=== PATIENT | female | born 1975 | race Caucasian/White ===

== ENCOUNTER 2022-08-20 18:27 | Inpatient (IN) | payer OTHER ==
[~2022-08-20] VITALS: Ht 157.5 cm; Wt 96.6 kg
--- NOTE | 2022-08-20 18:34 | ED Cough/URI ---
General Stated Complaint: LOW O2 History of Present Illness Date Seen by Provider: Aug 20, 2022 Time Seen by Provider: 18:31 Initial Comments 46-year-old female presents with concerns for having hard time catching her breath and possible O2. Patient was seen earlier today and diagnosed with influenza A. She reports that symptoms started 2 to 3 days ago. Patient reports she has a home oxygen monitor and it seemed like it was reading low. She does have a smoking history she. She reports that today started on Augmentin and gave her an albuterol inhaler. She denies any nausea vomiting or diarrhea. Allergies and Home Medications Allergies Coded Allergies: No Known Drug Allergies (Unverified , 08/20/22) Patient Home Medication List Home Medication List Reviewed: Yes Aspirin (Aspirin) 81 Mg Tab.chew, 81 MG PO DAILY Prescribed by: SHARON NIX on 08/21/22405 Last Action: New Order Atorvastatin Calcium (Atorvastatin Calcium) 40 Mg Tablet, 40 MG PO DAILY Prescribed by: SHARON NIX on 08/21/22405 Last Action: New Order Bisoprolol Fumarate (Bisoprolol Fumarate) 5 Mg Tablet, 5 MG PO HS, (Reported) Entered as Reported by: Yulisa Boss on 08/21/2251 Last Action: New Order Clopidogrel Bisulfate (Plavix) 75 Mg Tablet, 75 MG PO DAILY Prescribed by: SHARON NIX on 08/21/22405 Last Action: New Order Venlafaxine HCl (Effexor Xr) 37.5 Mg Cap.er.24h, 37.5 MG PO DAILY Prescribed by: SHARON NIX on 08/21/22405 Last Action: New Order Review of Systems Review of Systems Constitutional: chills; No fever; malaise EENTM: no symptoms reported Respiratory: cough, short of breath Cardiovascular: No chest pain Gastrointestinal: No abdominal pain, No diarrhea, No nausea, No vomiting Genitourinary: no symptoms reported Musculoskeletal: no symptoms reported Skin: no symptoms reported Psychiatric/Neurological: No Symptoms Reported Physical Exam Vital Signs - First Documented 08/20/22 18:37 Temp 37.9 Pulse 107 Resp 20 B/P (MAP) 137/91 (106) Pulse Ox 98 O2 Delivery Room Air Capillary Refill : Height: '" Weight: lbs. oz. kg; BMI Method: General Appearance: WD/WN Eyes: Bilateral Eye PERRL Neck: non-tender, full range of motion Respiratory: no respiratory distress, no accessory muscle use Cardiovascular: tachycardia Gastrointestinal: non tender, soft Neurologic/Psychiatric: alert, normal mood/affect, oriented x 3 Skin: normal color, warm/dry Progress/Results/Core Measures Suspected Sepsis SIRS Temperature: Pulse: Respiratory Rate: Laboratory Tests 08/20/22 18:37: White Blood Count 7.9 Blood Pressure / Mean: Laboratory Tests 08/20/22 18:37: Creatinine 0.80, Platelet Count 157, Total Bilirubin 0.4 Results/Orders Lab Results Laboratory Tests Test 08/20/22 18:37 Range/Units White Blood Count 7.9 4.3-11.0 10^3/uL Red Blood Count 4.30 3.80-5.11 10^6/uL Hemoglobin 14.2 11.5-16.0 g/dL Hematocrit 41 35-52 % Mean Corpuscular Volume 95 80-99 fL Mean Corpuscular Hemoglobin 33 25-34 pg Mean Corpuscular Hemoglobin Concent 35 32-36 g/dL Red Cell Distribution Width 13.9 10.0-14.5 % Platelet Count 157 130-400 10^3/uL Mean Platelet Volume 9.6 9.0-12.2 fL Immature Granulocyte % (Auto) 0 % Neutrophils (%) (Auto) 88 H 42-75 % Lymphocytes (%) (Auto) 5 L 12-44 % Monocytes (%) (Auto) 6 0-12 % Eosinophils (%) (Auto) 0 0-10 % Basophils (%) (Auto) 0 0-10 % Neutrophils # (Auto) 6.9 1.8-7.8 10^3/uL Lymphocytes # (Auto) 0.4 L 1.0-4.0 10^3/uL Monocytes # (Auto) 0.5 0.0-1.0 10^3/uL Eosinophils # (Auto) 0.0 0.0-0.3 10^3/uL Basophils # (Auto) 0.0 0.0-0.1 10^3/uL Immature Granulocyte # (Auto) 0.0 0.0-0.1 10^3/uL Neutrophils % (Manual) 77 % Lymphocytes % (Manual) 6 % Monocytes % (Manual) 1 % Eosinophils % (Manual) 0 % Basophils % (Manual) 0 % Band Neutrophils 16 % Sodium Level 132 L 135-145 MMOL/L Potassium Level 3.7 3.6-5.0 MMOL/L Chloride Level 94 L 98-107 MMOL/L Carbon Dioxide Level 21 21-32 MMOL/L Anion Gap 17 H 5-14 MMOL/L Blood Urea Nitrogen 10 7-18 MG/DL Creatinine 0.80 0.60-1.30 MG/DL Estimat Glomerular Filtration Rate 91 BUN/Creatinine Ratio 13 Glucose Level 190 H 70-105 MG/DL Calcium Level 8.3 L 8.5-10.1 MG/DL Corrected Calcium 8.5 8.5-10.1 MG/DL Total Bilirubin 0.4 0.1-1.0 MG/DL Aspartate Amino Transf (AST/SGOT) 23 5-34 U/L Alanine Aminotransferase (ALT/SGPT) 17 0-55 U/L Alkaline Phosphatase 60 40-136 U/L Total Protein 7.1 6.4-8.2 GM/DL Albumin 3.7 3.2-4.5 GM/DL My Orders Orders - SUERO,FREDDY L DO Cbc With Automated Diff (08/20/22 18:35) Comprehensive Metabolic Panel (08/20/22 18:35) Chest Pa/Lat (2 View) (08/20/22 18:35) Ns Iv 1000 Ml (Sodium Chloride 0.9%) (08/20/22 18:35) Ipratropium 0.02% Neb Solution (Atrovent (08/20/22 18:45) Svn Small Volume Nebulizer (08/20/22 18:35) Manual Differential (08/20/22 18:37) Dexamethasone Injection (Decadron Inje (08/20/22 19:15) Albuterol Pre-Mix Nebs (Rt) (Proventil (08/20/22 19:41) Svn Small Volume Nebulizer (08/20/22 19:41) Ct Angio Chest W (08/20/22 20:27) Iohexol Injection (Omnipaque 350 Mg/Ml 1 (08/20/22 20:30) Received Contrast (Hold Metformin- Contr (08/20/22 20:30) Ns (Ivpb) (Sodium Chloride 0.9% Ivpb Bag (08/20/22 20:30) Ed Admission (Communication) (08/20/22 20:44) Medications Given in ED Current Medications Medications Dose Ordered Sig/Yael Route Start Time Stop Time Status Last Admin Dose Admin Dexamethasone Sodium Phosphate 10 mg ONCE ONCE IV 08/20/22 19:15 08/20/22 19:16 DC 08/20/22 19:17 10 MG Iohexol 100 ml ONCE ONCE IV 08/20/22 20:30 08/20/22 20:31 DC 08/20/22 20:38 100 ML Ipratropium [place] 0.5 mg ONCE ONCE IH 08/20/22 18:45 08/20/22 18:46 DC 08/20/22 18:51 0.5 MG Sodium Chloride 100 ml ONCE ONCE IV 08/20/22 20:30 08/20/22 20:31 DC 08/20/22 20:38 100 ML Vital Signs/I&O 08/20/22 18:37 Temp 37.9 Pulse 107 Resp 20 B/P (MAP) 137/91 (106) Pulse Ox 98 O2 Delivery Room Air Capillary Refill : Progress Note : Progress Note Patient's oxygen at rest was in the low to mid 90s. She did have some mild improvement following DuoNeb. However with any activity her oxygen dropped into the mid 80s to upper 80s. After walking to the restroom and back she had an extended recovery time which required oxygen. Patient was placed on oxygen couple liters and maintained in the mid 90s. CTA was obtained that showed no acute findings. Patient to be admitted to [facility] observation due to influenza A and hypoxia. Patient was graciously accepted by Dr. Nix Diagnostic Imaging Diagonstic Imaging: CT Plain Films/CT/US/NM/MRI: chest Comments Date of Exam:08/20/22 CT ANGIO CHEST W PROCEDURE: CT angiography of the chest with contrast. TECHNIQUE: Multiple contiguous axial images were obtained through the chest after uneventful bolus administration of intravenous contrast. 3D reconstructed CTA MIP acquisitions were also performed. Auto Exposure Controls were utilized during the CT exam to meet ALARA standards for radiation dose reduction. INDICATION: Shortness of breath. Chest pain. COMPARISON: Chest radiograph performed earlier the same date. FINDINGS: This helical CT pulmonary angiogram is diagnostic to the subsegmental level branches of the pulmonary artery and demonstrates no pulmonary emboli. The heart and great vessels are unremarkable. There is no pericardial effusion. There is no axillary, mediastinal, or hilar adenopathy. Scattered partially calcified granulomas are seen in the lungs. Subsegmental atelectasis is seen in the midportion of the lungs anteriorly. No focal consolidation or suspicious pulmonary mass. No central endobronchial obstructing lesion. No pleural effusion or pneumothorax. Osseous structures appear normal. Limited views of the upper abdomen are unremarkable. IMPRESSION: 1. No acute pulmonary embolus. 2. Findings consistent with prior granulomatous disease. No suspicious pulmonary nodules. 3. Scattered subsegmental atelectasis in the anterior portion of the lungs. Reviewed: Reviewed by Me, Reviewed/Discussed Diagonstic Imaging: Xray Plain Films/CT/US/NM/MRI: chest Comments Date of Exam:08/20/22 CHEST PA/LAT (2 VIEW) INDICATION: Influenza A PA and lateral views of the chest are obtained. COMPARISON: None Heart size and pulmonary vascularity are within normal limits. There is mild increase in some perihilar regions which may represent mild pneumonitis. There is no lobar consolidation, pneumothorax or pleural fluid. IMPRESSION: Perihilar densities likely represent pneumonitis without consolidation identified. Reviewed: Reviewed by Me, Reviewed/Discussed Departure Impression Primary Impression: Influenza A Additional Impression: Hypoxia Disposition: 30 STILL A PATIENT Condition: Stable Admissions Decision to Admit/Date: Aug 20, 2022 Time/Decision to Admit Time: 20:40 Departure-Patient Inst. Scripts Aspirin (Aspirin) 81 Mg Tab.chew 81 MG PO DAILY for 30 Days, #30 TAB Prov: SHARON NIX DO 08/21/22 Venlafaxine HCl (Effexor Xr) 37.5 Mg Cap.er.24h 37.5 MG PO DAILY for 30 Days, #30 CAP Prov: SHARON NIX DO 08/21/22 Atorvastatin Calcium (Atorvastatin Calcium) 40 Mg Tablet 40 MG PO DAILY for 30 Days, #30 TAB Prov: SHARON NIX DO 08/21/22 Clopidogrel Bisulfate (Plavix) 75 Mg Tablet 75 MG PO DAILY for 30 Days, #30 TAB Prov: SHARON NIX DO 08/21/22 FREDDY SUERO DO Aug 20, 2022 18:34
[2022-08-20] MEDS ORDERED: NS IV 1000 ML 1,000 ML IV STA (18:35)
[2022-08-20 18:41] LABS: BASOPHILS % (AUTO) 0 % (0-10); EOSINOPHILS % (AUTO) 0 % (0-10); HEMATOCRIT 41 % (35-52); HEMOGLOBIN 14.2 g/dL (11.5-16.0); LYMPHOCYTES # (AUTO) 0.4 10^3/uL (1.0-4.0); LYMPHOCYTES % (AUTO) 5 % (12-44); MEAN CORPUSCULAR HEMOGLOBIN 33 pg (25-34); MEAN CORPUSCULAR HGB CONC 35 g/dL (32-36); MEAN CORPUSCULAR VOLUME 95 fL (80-99); MEAN PLATELET VOLUME 9.6 fL (9.0-12.2); MONOCYTES # (AUTO) 0.5 10^3/uL (0.0-1.0); MONOCYTES % (AUTO) 6 % (0-12); NEUTROPHILS # (AUTO) 6.9 10^3/uL (1.8-7.8); NEUTROPHILS % (AUTO) 88 % (42-75); PLATELET COUNT 157 10^3/uL (130-400); WHITE BLOOD COUNT 7.9 10^3/uL (4.3-11.0)
[2022-08-20] MEDS ORDERED: RT-IPRATROPIUM (ATROVENT) 0.5MG/2.5ML AMP IH ONE (18:45)
--- NOTE | 2022-08-20 18:55 | Diagnostic Imaging Report ---
INDICATION: Influenza A PA and lateral views of the chest are obtained. COMPARISON: None Heart size and pulmonary vascularity are within normal limits. There is mild increase in some perihilar regions which may represent mild pneumonitis. There is no lobar consolidation, pneumothorax or pleural fluid. IMPRESSION: Perihilar densities likely represent pneumonitis without consolidation identified. Dictated by: Dictated on workstation # [id number]
[2022-08-20 19:02] LABS: BILIRUBIN,TOTAL 0.4 MG/DL (0.1-1.0); CALCIUM 8.3 MG/DL (8.5-10.1); CREATININE SERUM 0.8 MG/DL (0.60-1.30); POTASSIUM 3.7 MMOL/L (3.6-5.0); TOTAL PROTEIN 7.1 GM/DL (6.4-8.2)
[2022-08-20 19:03] LABS: ALBUMIN 3.7 GM/DL (3.2-4.5)
[2022-08-20 19:11] LABS: BAND NEUTROPHILS 16 %; LYMPHOCYTES % (MANUAL) 6 %; MONOCYTES % (MANUAL) 1 %; NEUTROPHILS % (MANUAL) 77 %
[2022-08-20 19:12] LABS: BASOPHILS % (MANUAL) 0 %; EOSINOPHILS % (MANUAL) 0 %
[2022-08-20] MEDS ORDERED: RT-ALBUTEROL SULF 2.5 MG/3 ML PRE-MIX VIAL INH STA (19:41)
[2022-08-20] MEDS ORDERED: IOHEXOL 350 MG/ML 100 ML (OMNIPAQUE 350) VIAL IV ONE (20:30)
[2022-08-20] MEDS ORDERED: HOLD METFORMIN - RECEIVED CONTRAST 20 ML VIAL IV SCH (20:30)
[2022-08-20] MEDS ORDERED: NS 100 ML (IVPB) BAG IV ONE (20:30)
--- NOTE | 2022-08-20 21:01 | Diagnostic Imaging Report ---
PROCEDURE: CT angiography of the chest with contrast. TECHNIQUE: Multiple contiguous axial images were obtained through the chest after uneventful bolus administration of intravenous contrast. 3D reconstructed CTA MIP acquisitions were also performed. Auto Exposure Controls were utilized during the CT exam to meet ALARA standards for radiation dose reduction. INDICATION: Shortness of breath. Chest pain. COMPARISON: Chest radiograph performed earlier the same date. FINDINGS: This helical CT pulmonary angiogram is diagnostic to the subsegmental level branches of the pulmonary artery and demonstrates no pulmonary emboli. The heart and great vessels are unremarkable. There is no pericardial effusion. There is no axillary, mediastinal, or hilar adenopathy. Scattered partially calcified granulomas are seen in the lungs. Subsegmental atelectasis is seen in the midportion of the lungs anteriorly. No focal consolidation or suspicious pulmonary mass. No central endobronchial obstructing lesion. No pleural effusion or pneumothorax. Osseous structures appear normal. Limited views of the upper abdomen are unremarkable. IMPRESSION: 1. No acute pulmonary embolus. 2. Findings consistent with prior granulomatous disease. No suspicious pulmonary nodules. 3. Scattered subsegmental atelectasis in the anterior portion of the lungs. Dictated by: Dictated on workstation # [id number]
[2022-08-20] MEDS ORDERED: morphine INJ 4 MG/ML 1 ML (VIAL/SYRINGE) IV PRN (23:45)
[2022-08-20] MEDS ORDERED: cloNIDine 0.1 MG (CATAPRES) TAB PO PRN (23:45)
[2022-08-20] MEDS ORDERED: diphenhydrAMINE 25 MG TAB (BENADRYL) PO PRN (23:45)
[2022-08-20] MEDS ORDERED: BISACODYL 10 MG SUPP (DULCOLAX) PR PRN (23:45)
[2022-08-20] MEDS ORDERED: ALPRAZolam 0.5 MG (XANAX) TAB PO PRN (23:45)
[2022-08-20] MEDS ORDERED: MELATONIN 3 MG TABLET PO PRN (23:45)
[2022-08-20] MEDS ORDERED: ACETAMINOPHEN 325 MG TABLET PO PRN (23:45)
[2022-08-20] MEDS ORDERED: ANTACID SUSP 30 ML UDC (MYLANTA) PO PRN (23:45)
[2022-08-20] MEDS ORDERED: diphenhydrAMINE 50 MG/ML INJ (BENADRYL) IVP PRN (23:45)
[2022-08-20] MEDS ORDERED: ONDANSETRON 4 MG/2 ML (SDV) Z0FRAN IV PRN (23:45)
[2022-08-20] MEDS ORDERED: NS IV 500 ML 500 ML IV PRN (23:45)
[2022-08-20] MEDS ORDERED: ONDANSETRON 4 MG (ZOFRAN) ORAL DISSOLVE TAB PO PRN (23:45)
[2022-08-20] MEDS ORDERED: ENOXAPARIN 40 MG/0.4 ML (LOVENOX) SYR SC SCH (23:45)
[2022-08-20] MEDS ORDERED: polyethylene glycoL POWDER 17 GM (MIRALAX) PACK PO PRN (23:45)
[2022-08-20 23:55] VITALS: BP 137/91
[2022-08-21] MEDS ORDERED: RT-ALBUTEROL SULF 2.5 MG/3 ML PRE-MIX VIAL INH PRN (00:30)
[2022-08-21 00:52] LABS: ABG BASE EXCESS -2.2 MMOL/L (-2.5-2.5); ABG OXYGEN SATURATION 91 % (94-100); ABG PCO2 41 MMHG (35-45); ABG PH 7.36 (7.37-7.43); ABG PO2 62 MMHG (79-93); ABG TCO2 23.5 MMOL/L (21.0-31.0); ALLENS TEST YES-POS
[2022-08-21] MEDS ORDERED: CLOP-31 PO (00:52)
[2022-08-21] MEDS ORDERED: ATOR40TA70 PO ×2 (00:52→11:33)
[2022-08-21] MEDS ORDERED: NF-BISOP5 PO (00:52)
[2022-08-21] MEDS ORDERED: VENL37.52 PO ×2 (00:52→11:33)
[2022-08-21] MEDS ORDERED: ASPI-999 PO (00:52)
[2022-08-21 00:53] LABS: PATIENT TEMP 37.4; VENTILATOR NO
[2022-08-21 03:48] LABS: BASOPHILS % (AUTO) 0 % (0-10); EOSINOPHILS % (AUTO) 0 % (0-10); HEMATOCRIT 42 % (35-52); HEMOGLOBIN 14.1 g/dL (11.5-16.0); LYMPHOCYTES # (AUTO) 0.5 10^3/uL (1.0-4.0); LYMPHOCYTES % (AUTO) 9 % (12-44); MEAN CORPUSCULAR HEMOGLOBIN 33 pg (25-34); MEAN CORPUSCULAR HGB CONC 34 g/dL (32-36); MEAN CORPUSCULAR VOLUME 97 fL (80-99); MEAN PLATELET VOLUME 9.9 fL (9.0-12.2); MONOCYTES # (AUTO) 0.2 10^3/uL (0.0-1.0); MONOCYTES % (AUTO) 3 % (0-12); NEUTROPHILS % (AUTO) 88 % (42-75); PLATELET COUNT 164 10^3/uL (130-400); WHITE BLOOD COUNT 5.7 10^3/uL (4.3-11.0)
[2022-08-21 04:11] LABS: ALBUMIN 3.6 GM/DL (3.2-4.5)
[2022-08-21 04:12] LABS: CALCIUM 8.8 MG/DL (8.5-10.1)
[2022-08-21 04:15] LABS: BILIRUBIN,TOTAL 0.3 MG/DL (0.1-1.0)
[2022-08-21 04:16] LABS: PHOSPHORUS 1.7 MG/DL (2.3-4.7)
[2022-08-21 04:17] LABS: CREATININE SERUM 0.81 MG/DL (0.60-1.30)
[2022-08-21 04:20] LABS: MAGNESIUM 2.3 MG/DL (1.6-2.4)
[2022-08-21] MEDS ORDERED: KCL 20 MEQ TAB (K-DUR) PO SCH (06:00)
[2022-08-21] MEDS ORDERED: POTASSIUM CL 10MEQ/50ML IVPB 50 ML IV SCH (06:00)
[2022-08-21] MEDS ORDERED: MAGNESIUM 1 GM/100 ML IVPB 100 ML IV SCH (06:00)
[2022-08-21] MEDS: NS IV 1000 ML 1,000 ML IV SCH ×2 (06:06→14:00)
[2022-08-21] MEDS: inSUlin ASPART (NovoLOG) 1 UNIT/0.01 ML (CHARGE PER UNIT) SC SCH ×2 (06:07→12:39)
[2022-08-21] MEDS ORDERED: RT-ALBUTEROL SULF 2.5 MG/3 ML PRE-MIX VIAL INH SCH (08:00)
[2022-08-21] MEDS ORDERED: OSELTAMIVIR 75 MG (TAMIFLU) CAPSULE PO SCH ×2 (09:00→15:15)
[2022-08-21] MEDS ORDERED: DOCUSATE SODIUM 100 MG (COLACE) CAP PO SCH (09:00)
--- NOTE | 2022-08-21 09:20 | Tele-ICU Consult ---
History of Present Illness History of Present Illness Date Seen by Provider: Aug 21, 2022 Time Seen by Provider: 09:17 Date of Admission 46 F admitted with Flu A, SOB x 2-3 days, no other PMH Sp O2, now on 0.5 lpm NC, On Tamiflu Not working hard to breathe Allergies and Home Medications Allergies Coded Allergies: No Known Drug Allergies (Unverified , 08/20/22) Home Medications Amoxicillin/Potassium Clav 875 Mg-125 Mg Tablet, 1 EACH PO BID, (Reported) FILLED 08-20-2022 #20/10 DAY SUPPLY Aspirin 81 Mg Tablet.dr, 81 MG PO HS, (Reported) Atorvastatin Calcium 40 Mg Tablet, 40 MG PO HS, (Reported) Bisoprolol Fumarate 5 Mg Tablet, 5 MG PO HS, (Reported) Clopidogrel Bisulfate 75 Mg Tablet, 75 MG PO HS, (Reported) Ipratropium/Albuterol Sulfate 0.5 Mg-3 Mg (2.5 Mg Base)/3 Ml Ampul.neb, 3 ML IH Q6H PRN for SHORTNESS OF BREATH, (Reported) Venlafaxine HCl 37.5 Mg Cap.er.24h, 37.5 MG PO HS, (Reported) Past Medical/Social/Family Hx Patient Social History Tobacco Use?: Yes Tobacco type used: Cigarettes Smoking Status: Current Everyday Smoker Use of E-Cig and/or Vaping dev: No Substance use?: No Alcohol Use?: No Pt stated abuse/neglect: No Immunizations Up To Date Influenza Vaccine Up-to-Date: No; Not Current Tetanus Booster (TDap): Unknown Hepatitis A: No Hepatitis B: No TB Skin Test: None Current Status status: No status: No Advance Directives: No Communicates: Verbally Primary Language: Ugandan Preferred Spoken Language: Ugandan Is interpretation needed?: No Sensory deficits: Vision impairment Implanted or Applied Medical D: None Review of Systems Constitutional: weakness Respiratory: dyspnea on exertion Focused Exam Height, Weight, BMI Height: '" Weight: lbs. oz. kg; 38.94 BMI Method: Exam Exam Patient acknowledged, consented, and participated in this virtual visit which was conducted using real time audio/video Vital Signs Date Time Temp Pulse Resp B/P (MAP) Pulse Ox O2 Delivery O2 Flow Rate FiO2 08/21/22 09:00 86 120/58 (78) 91 Nasal Cannula 2.00 08/21/22 08:00 75 147/77 (100) 90 Nasal Cannula 2.00 08/21/22 07:00 76 08/21/22 07:00 66 128/68 (88) 92 Nasal Cannula 2.00 08/21/22 06:00 91 127/67 (87) 93 Nasal Cannula 2.00 08/21/22 05:00 71 127/78 (94) 91 Nasal Cannula 2.00 08/21/22 04:00 87 121/68 (85) 92 Nasal Cannula 2.00 08/21/22 03:00 67 127/62 (83) 91 Nasal Cannula 2.00 08/21/22 02:15 79 118/64 (82) 90 Nasal Cannula 2.00 08/21/22 01:45 85 103/60 (74) 91 Nasal Cannula 2.00 08/21/22 00:24 73 08/21/22 00:15 86 120/62 (81) 94 Nasal Cannula 2.00 08/21/22 00:00 81 136/94 (108) 94 Nasal Cannula 2.00 08/20/22 23:55 37.9 107 98 21 08/20/22 23:45 Nasal Cannula 2.00 98 08/20/22 23:45 85 107/96 (100) 93 Nasal Cannula 2.00 08/20/22 23:30 90 142/67 (92) 93 Nasal Cannula 2.00 08/20/22 22:24 81 18 115/48 93 Nasal Cannula 2.00 08/20/22 18:37 37.9 107 20 137/91 (106) 98 Room Air I & O 08/21/22 07:00 Intake Total 2350 ml Output Total 600 ml Balance 1750 ml Height & Weight Height: '" Weight: lbs. oz. kg; 38.94 BMI Method: General Appearance: No Apparent Distress Respiratory: Lungs Clear, Wheezing (occasional wheeze) Cardiovascular: Regular Rate, Rhythm, No Edema Gastrointestinal: normal bowel sounds, non tender, soft Results Lab Laboratory Tests 08/20/22 18:37 08/21/22 03:38 Assessment/Plan Assessment/Plan Influenza A with mild dyspnea, can probably can go to floor, did not get flu vaccine. Will contact Dr Ny, continue Tamiflu Critical Care: Critically Ill Patient Time spent with patient (mins): 25 KHUSHBU GRIMM MD Aug 21, 2022 09:20
--- NOTE | 2022-08-21 11:01 | Short Stay Summary-Hospitalist ---
History of Present Illness HPI/Chief Complaint CC: SOB HPI: This is a 46 yr old female that smokes. She presented after Influenza A diagnosis and acute bronchitis. Pt was requiring oxygen. CT angiogram was negative for PE, so she was moved to [facility]. At this current time, pt feels better. She will have home O2 and be discharged in improved condition. Source: patient Exam Limitations: no limitations Date Seen 08/21/22 Time Seen by a Provider: 11:00 Attending Physician Anca Alcantar PCP Admitting Physician: Veronica Ny DO Attending Physician: Veronica Ny DO Referring Physician Date of Admission Aug 20, 2022 at 23:25 Home Medications & Allergies Home Medications Reviewed patient Home Medication Reconciliation performed by pharmacy medication reconciliations motion picture camera lens technician and/or nursing. Patients Allergies have been reviewed. Allergies Allergies Coded Allergies No Known Drug Allergies ([id number]/1/22) Past Zaqikda-Qgfbjl-Zystal Hx Patient Social History Marrital Status: single Employed/Student: unemployed Tobacco Use?: Yes Tobacco type used: Cigarettes Smoking Status: Current Everyday Smoker Use of E-Cig and/or Vaping dev: No Substance use?: No Alcohol Use?: No Pt feels they are or have been: No Immunizations Up To Date Tetanus Booster (TDap): Unknown Hepatitis A: No Hepatitis B: No Current Status status: No status: No Advance Directives: No Communicates: Verbally Primary Language: Italian Preferred Spoken Language: Italian Is interpretation needed?: No Sensory deficits: Vision impairment Implanted or Applied Medical D: None Review of Systems Constitutional: see HPI Respiratory: cough, dyspnea on exertion Physical Exam Physical Exam Vital Signs Vital Signs - First Documented 08/20/22 08/20/22 08/20/22 18:37 22:24 23:45 Temp 37.9 Pulse 107 Resp 20 B/P (MAP) 137/91 (106) Pulse Ox 98 O2 Delivery Room Air O2 Flow Rate 2.00 FiO2 98 Capillary Refill : Height, Weight, BMI Height: '" Weight: lbs. oz. kg; 38.94 BMI Method: General Appearance: No Apparent Distress, Chronically ill Eyes: Bilateral Eye PERRL Respiratory: No Accessory Muscle Use, No Respiratory Distress, Wheezing (occasional wheeze) Cardiovascular: Regular Rate, Rhythm, No Edema Results Results/Procedures Labs Laboratory Tests 08/20/22 18:37 12/2/22 03:38 Patient resulted labs reviewed. Short Stay Diagnosis Discharge Diagnosis-Short Stay Admission Diagnosis Flu A Bronchitis Wheezing Smoker Hypoxia Final Discharge Diagnosis Acute respiratory failure with Hypoxia Flu A Bronchitis Wheezing Smoker Conclusion Plan ND VERONICA Tanner DO Aug 21, 2022 11:01
[2022-08-21] MEDS ORDERED: methylPREDNISolone 125 MG (Solu-MEDROL) VIAL IV NR (11:15)
[2022-08-21] MEDS ORDERED: CLOP75TA28 PO (11:33)
[2022-08-21] MEDS ORDERED: AMOX1TAB12 PO (11:33)
[2022-08-21] MEDS ORDERED: ASPI-1238 PO (11:33)
[2022-08-21] MEDS ORDERED: IPRA3AMP31 IH (11:41)
[2022-08-21] MEDS ORDERED: RT-ALBUTEROL/IPRATROPIUM 3 ML (DUONEB) VIAL IH PRN (12:15)
[2022-08-21] MEDS ORDERED: OSLT75C PO (14:24)
[2022-08-21] MEDS ORDERED: PRED10TA22 PO (14:24)
[2022-08-21] MEDS ORDERED: RELABEL FOR HOME USE MC SCH (14:30)
[2022-08-21] MEDS ORDERED: VENlafaxine XR 37.5 MG (EFFEXOR XR) CAP PO SCH (21:00)
[2022-08-21] MEDS ORDERED: CLOPIDOGREL 75 MG (PLAVIX) TABLET PO SCH (21:00)
[2022-08-21] MEDS ORDERED: BISOPROLOL 5 MG TAB (ZEBETA) PO SCH (21:00)
[2022-08-21] MEDS ORDERED: ASPIRIN E.C. 81 MG (ECOTRIN) TAB PO SCH (21:00)
[2022-08-21] MEDS ORDERED: AUGMENTIN 875 MG TAB (AMOXICILLIN/CLAVULANATE) PO SCH (21:00)
== END 2022-08-21 15:05 | disposition home or self-care (01) | DRG 193 ==
LOC: ER FS 18:29 → ICU 23:25
PROVIDERS: ADMIT Internal Medicine; ATTEND Internal Medicine
DX: J10.1 Influenza due to other identified influenza virus with other respiratory manifestations (principal); J96.01 Acute respiratory failure with hypoxia; F17.210 Nicotine dependence, cigarettes, uncomplicated; J20.9 Acute bronchitis, unspecified; Z79.82 Long term (current) use of aspirin; Z79.899 Other long term (current) drug therapy
CPT/HCPCS: 36415; 36600; 71046; 71275; 80053; 82805; 82947; 83036; 83735; 84100; 85007; 85025; 85027; 87081; 94640; 94761; Q9967